=== PATIENT | male | born 1960 | race Caucasian/White ===

== ENCOUNTER 2016-07-14 22:27 | Emergency (ER) | payer OTHER ==
[~2016-07-14 22:27] MED LIST: Iopamidol 370 76% 100 ML VIAL ONE
[2016-07-14 23:02] LABS: #Basophils 0.1 thou/uL (0.0-0.2); #Eosinphils 0.4 thou/uL (0.0-0.7); #Lymphocytes 1.8 thou/uL (1.20-3.40); #Monocytes 1.1 thou/uL (0.11-0.59); #Neutrophils 7.8 thou/uL (1.40-6.50); %Basophils 0.9 % (0.0-1.0); %Eosinophils 3.2 % (0.0-10.0); %Lymphocytes 16.2 % (21.0-51.0); %Monocytes 10.1 % (0.0-10.0); %Neutrophils 69.6 % (42.0-75.0); Hemoglobin 14.9 g/dL (14.0-18.0); Mean Corpuscular HGB CONC 34.8 g/dL (32.0-36.0); Mean Corpuscular Hemoglobin 31.8 pg (27.0-31.0); Mean Corpuscular Volume 91.3 fl (80.0-94.0); Mean Platelet Volume 7.5 fL (7.4-10.4); Platelet Count 206 thou/uL (130-400); RBC Distribution Width 12.7 % (11.5-14.5); White Blood Cell (WBC) Count 11.2 thou/uL (4.8-10.8)
[2016-07-14 23:18] LABS: ALT (SGPT) 30 U/L (8-55); AST (SGOT) 18 U/L (5-34); Alkaline Phosphatase 70 U/L (40-150); Anion Gap 13 mmol/L (10-20); BUN (Urea Nitrogen) 19 mg/dL (8.4-25.7); Bilirubin, Total 0.4 mg/dL (0.2-1.2); Calc. Creatinine Clearance 0 mL/min (70-130); Calcium 9.2 mg/dL (7.8-10.44); Carbon Dioxide 24 mmol/L (22-29); Chloride 105 mmol/L (98-107); Estimated GFR-MDRD 86; Globulin 2.9 g/dL (2.4-3.5); Glucose 157 mg/dL (70-105); Lipase 32 U/L (8-78); Potassium 4.2 mmol/L (3.5-5.1); Protein, Total 6.9 g/dL (6.0-8.3); Sodium 138 mmol/L (136-145)
--- NOTE | 2016-07-14 23:45 | CT ---
CT OF THE ABDOMEN AND PELVIS WITH CONTRAST 07/14/16 COMPARISON: None. HISTORY: Right lower quadrant abdominal pain since . TECHNIQUE: Multiple contiguous axial images were obtained in a CT of the abdomen and pelvis without contrast. C oronal reformats were performed. FINDINGS: The liver, gallbladder, kidneys, adrenal glands, spleen, and pancreas are unremarkable. There is scattered diverticula in the sigmoid colon. Stranding changes seen in the pelvis adjacent t he sigmoid colon consistent with acute diverticulitis. The small bowel and appendix are unremarkable . No free air or free fluid are seen in the abdomen or pelvis. No abdominal or pelvic lymphadenopathy are seen. Atherosclerotic calcifications are seen in the aort a. Mild degenerative changes are seen in the spine. The abdominal wall soft tissues and visualized i nferior thorax are unremarkable. IMPRESSION: Acute diverticulitis. POS: BARB
[2016-07-14 23:50] LABS: Bilirubin Negative (Negative); Blood, Urine Negative (Negative); Clarity Slightly Cloudy (Clear); Glucose, Urine (Dipstick) Negative (Negative); Leukocyte Negative (Negative); Nitrite Negative (Negative); Protein, Urine (Dipstick) Negative (Neg-Trace); Specific Gravity, Urine 1.015 (1.005-1.030)
[2016-07-14] MEDS ORDERED: Piperacillin/Tazobactam 3.375 GM VIAL ONE (23:57)
[2016-07-15] MEDS ORDERED: Sodium Chloride 0.9% 100 ML ONE
== END 2016-07-15 00:56 | disposition home or self-care (01) ==
LOC: BURERS 22:27
DX: K57.32 Diverticulitis of large intestine without perforation or abscess without bleeding (principal); I25.10 Atherosclerotic heart disease of native coronary artery without angina pectoris; Z95.1 Presence of aortocoronary bypass graft
CPT/HCPCS: 74177; 80053; 81003; 83690; 85025; 96361; 96365; J2543; J7050

== ENCOUNTER 2016-08-27 09:41 | Outpatient (CLI) | payer OTHER ==
[2016-08-27 12:43] LABS: #Basophils 0.1 thou/uL (0.0-0.2); #Eosinphils 0.3 thou/uL (0.0-0.7); #Lymphocytes 1.5 thou/uL (1.20-3.40); #Monocytes 0.7 thou/uL (0.11-0.59); #Neutrophils 5.2 thou/uL (1.40-6.50); %Basophils 0.8 % (0.0-1.0); %Eosinophils 4.1 % (0.0-10.0); %Lymphocytes 18.9 % (21.0-51.0); %Neutrophils 67.1 % (42.0-75.0); Hemoglobin 14.8 g/dL (14.0-18.0); Mean Corpuscular HGB CONC 33.7 g/dL (32.0-36.0); Mean Corpuscular Hemoglobin 31.2 pg (27.0-31.0); Mean Corpuscular Volume 92.4 fl (80.0-94.0); Platelet Count 194 thou/uL (130-400); RBC Distribution Width 13.1 % (11.5-14.5); Red Blood Cell (RBC) Count 4.75 mill/uL (4.70-6.10); White Blood Cell (WBC) Count 7.7 thou/uL (4.8-10.8)
[2016-08-27 12:53] LABS: ALT (SGPT) 38 U/L (8-55); AST (SGOT) 23 U/L (5-34); Albumin 4.1 g/dL (3.5-5.0); Alkaline Phosphatase 74 U/L (40-150); Anion Gap 14 mmol/L (10-20); BUN (Urea Nitrogen) 12 mg/dL (8.4-25.7); Bilirubin, Total 0.6 mg/dL (0.2-1.2); Calc. Creatinine Clearance 0 mL/min (70-130); Carbon Dioxide 25 mmol/L (22-29); Cardiac Risk 3.1 (Less than 4.5); Chloride 108 mmol/L (98-107); Cholesterol 119 mg/dl (< 200 Desired); Estimated GFR-MDRD Greater than 90; Globulin 2.3 g/dL (2.4-3.5); Glucose 104 mg/dL (70-105); HDL Cholesterol 39 mg/dL (>60 Neg Risk); LDL Cholesterol, Calculated 66 mg/dL; Potassium 5.1 mmol/L (3.5-5.1); Protein, Total 6.4 g/dL (6.0-8.3); Sodium 142 mmol/L (136-145); Triglycerides 69 mg/dL (Less than 150)
[2016-08-27 12:55] LABS: PSA-Asymptomatic (SCREENING) 0.29 ng/mL (0-4.0); Thyroid Stimulating Hormone 0.9806 uIU/mL (0.35-4.94)
== END 2016-08-27 09:42 ==
LOC: HPCALD 09:41
PROVIDERS: ATTEND Family Medicine
DX: Z12.5 Encounter for screening for malignant neoplasm of prostate (principal); E78.5 Hyperlipidemia, unspecified; I10 Essential (primary) hypertension
CPT/HCPCS: 36415; 80053; 80061; 84443; 85025; G0103

== ENCOUNTER 2017-04-04 08:58 | Outpatient (CLI) | payer OTHER ==
--- NOTE | 2017-04-04 17:28 | RAD ---
LEFT SHOULDER THREE VIEWS 04/04/17 No fracture or dislocation was seen. There is some bony spurring along the inferior lip of the glenoi d fossa. Sometimes this can be a lesion from a prior dislocation. In general, the glenohumeral joint otherwise appears normal. There are some degenerative changes in the AC joint. The scapula otherwise is unremarkable. IMPRESSION: 1. Arthritic changes of the AC joint. 2. Bony irregularity of the inferior lip of the glenoid. POS: HOME
== END 2017-04-04 08:59 | disposition home or self-care (01) ==
LOC: BURRAD 08:58
PROVIDERS: ATTEND Family Medicine
DX: M25.512 Pain in left shoulder (principal); M89.9 Disorder of bone, unspecified; M19.012 Primary osteoarthritis, left shoulder